=== PATIENT | male | born 1950 | race Two or more races ===

== ENCOUNTER 2019-04-26 22:14 | Inpatient (IN) | payer MEDICARE, OTHER ==
[~2019-04-26] VITALS: Ht 167.6 cm; Wt 70.1 kg
[2019-04-26] MEDS ORDERED: ONDANSETRON 4 MG TAB.RAPDIS ONE (22:26)
[2019-04-26] MEDS ORDERED: ONDANSETRON 4 MG TAB.RAPDIS SL ONE (22:30)
--- NOTE | 2019-04-26 22:35 | NUR ---
PT BIBRA 62 FOR ETOH FROM HOME. "HAD HALF A BOTTLE OF VODKA" . PT AWAKE AND CONFUSED, UNABLE TO OBTAIN HISTORY, VSS. KAITY CUTE DISTRESS NOTED. WILL MONITOR ACCORDINGLY
[2019-04-26 22:38] LABS: BASOPHILS # (AUTO) 0.1 /CMM (0.0-0.2); BASOPHILS % (AUTO) 1.2 % (0.0-2.0); EOSINOPHILS % (AUTO) 3.1 % (0.0-6.0); HEMATOCRIT 43 % (39-51); HEMOGLOBIN 14.3 g/dL (13.5-17.5); LYMPHOCYTES # (AUTO) 2.5 /CMM (0.8-4.8); MEAN CORPUSCULAR HGB CONC 33 g/dl (31.0-36.0); MEAN CORPUSCULAR VOLUME 90 fL (80-96); MONOCYTES # (AUTO) 0.8 /CMM (0.1-1.30); MONOCYTES % (AUTO) 7.7 % (2.0-12.0); NEUTROPHILS # (AUTO) 6.4 /CMM (1.8-8.9); PLATELET COUNT (AUTO) 284 /CMM (150-450); RED BLOOD CELL COUNT(AUTO) 4.85 MIL/uL (4.5-6.0); WHITE BLOOD COUNT (AUTO) 10.1 K/uL (4.3-11.0)
[2019-04-26 22:50] LABS: CALCIUM, SERUM 9.1 mg/dL (8.5-10.1); CREATININE 1.2 mg/dL (0.6-1.3); POTASSIUM 3.6 mmol/L (3.5-5.1)
[2019-04-26 22:58] LABS: ALBUMIN 3.8 g/dL (3.4-5.0); BILIRUBIN,DIRECT 0.1 mg/dL (0.0-0.2); BILIRUBIN,TOTAL 0.2 mg/dL (0.2-1.0); TOTAL PROTEIN, SERUM 8.2 g/dL (6.4-8.2)
--- NOTE | 2019-04-26 23:43 | NUR ---
Patient is resting comfortably in bed. Easily aroused. VSS.
--- NOTE | 2019-04-27 00:05 | NUR ---
PT WATCHING TV AND EATING SANDWHICH. VSS.
[2019-04-27] MEDS ORDERED: HALOPERIDOL LACTATE INJ 5 MG/ML VIAL ONE (00:39)
[2019-04-27] MEDS ORDERED: METOPROLOL TARTRATE 50 MG TABLET ONE (00:46)
[2019-04-27] MEDS ORDERED: METOPROLOL TARTRATE 50 MG TABLET PO ONE (01:00)
[2019-04-27] MEDS ORDERED: ASPIRIN 325 MG TABLET PO ONE (01:00)
[2019-04-27] MEDS ORDERED: HALOPERIDOL LACTATE INJ 5 MG/ML VIAL IM ONE (01:00)
[2019-04-27] MEDS ORDERED: ASPIRIN 325 MG TABLET ONE (01:02)
--- NOTE | 2019-04-27 03:04 | NUR ---
PT RESTING COMFORTABLY. VSS.
[2019-04-27] MEDS ORDERED: IV D5/ 0.9% NACL 1,000 ML IV ONE (03:05)
--- NOTE | 2019-04-27 03:35 | NUR ---
[facility] PAGED
[2019-04-27] MEDS ORDERED: MAG HYDROX/AL HYDROX/SIMETH 30 ML UDC PO PRN (04:00)
[2019-04-27] MEDS ORDERED: ACETAMINOPHEN 325 MG TABLET PO PRN (04:00)
[2019-04-27] MEDS ORDERED: Z GUARD REMEDY 2 OZ OINT TP PRN (04:00)
[2019-04-27] MEDS ORDERED: ZOLPIDEM TARTRATE 5 MG TABLET PO PRN (04:00)
[2019-04-27] MEDS ORDERED: HYDROCODONE/APAP 5/325MG 1 EACH TABLET PO PRN (04:00)
[2019-04-27] MEDS ORDERED: ONDANSETRON HCL/PF 4 MG/2 ML VIAL IVP PRN (04:00)
[2019-04-27] MEDS ORDERED: LORAZEPAM INJ 2 MG/ML VIAL IV PRN (04:00)
--- NOTE | 2019-04-27 04:51 | NUR ---
Spoke with Mark from [facility] for admitting time order and inpatient MD
--- NOTE | 2019-04-27 04:59 | NUR ---
room [id number]
--- NOTE | 2019-04-27 05:05 | NUR ---
report given to matthew boone for mohini
--- NOTE | 2019-04-27 05:43 | NUR ---
ER made aware that pt's BP is 86/62. NNO received. pt is OK to go up.
[2019-04-27 06:00] VITALS: BP 93/59
--- NOTE | 2019-04-27 06:08 | NUR ---
Pt transported to unit on [facility] w/ emt and rn at bedside w/ alcs protocol. nad noted during transfer.
[2019-04-27] MEDS: IV NS 0.9% 1,000 ML IV PRN ×3 (06:22→23:03)
[2019-04-27] MEDS: ENOXAPARIN SODIUM 40 MG/0.4 ML DISP.SYRIN SQ SCH (06:23)
--- NOTE | 2019-04-27 06:33 | NUR ---
ENGINEER PROCESSMOTION PICTURE CRITIC NOTES PATIENT ARRIVED FROM ER ACCOMPANIED BY ER STAFF VIA GURNEY. PATIENT IS A/O X 1-2, SLURRING, CONFUSED, DISORIENTED. PATIENT STABLE ON RA, BREATHING EVEN AND UNLABORED, NO SOB NOTED. NO SIGNS OF ACUTE DISTRESS, NO COMPLAINTS OF PAIN OR DISCOMFORT. IV LOCATED ON RIGHT WRIST # 20 PATENT AND INTACT. TELE MONITORS PLACED ON PATIENT READING A. FIB 81. ALL BELONGINGS ACCOUNTED FOR. PATIENT ORIENTED TO ROOM AND STAFF. VITAL SIGNS TAKEN BP 93/59 P 84 R 18 SPO2 99. WILL CONTINUE TO MONITOR.
--- NOTE | 2019-04-27 06:42 | NUR ---
CASING CREW PUSHER NOTES ENOXAPARIN GIVEN LATE- PATIENT DID NOT ARRIVE TO ROOM UNTIL 0600.
--- NOTE | 2019-04-27 07:45 | NUR ---
[facility] OPENING NOTE RECEIVED PATIENT SLEEPING COMFORTABLY IN BED. PATIENT IN NO ACUTE DISTRESS. NO SOB NOTED. PATIENT BREATHING IS EVEN AND UNLABORED. PATIENT ON CARDIAC MONITORING READING AFIB HR 85. SAFETY PRECAUTIONS IN PLACE. PATIENT BED IS LOCKED AND IN LOWEST POSITION. CALL LIGHT WITHIN REACH. WILL CONTINUE TO MONITOR.
[2019-04-27 08:00] VITALS: BP 105/56
[2019-04-27] MEDS: FOLIC ACID 1 MG TABLET PO SCH (08:34)
[2019-04-27] MEDS: THIAMINE HCL 100 MG TABLET PO SCH (08:34)
[2019-04-27] MEDS ORDERED: IV NS 0.9% 1,000 ML IV PRN (09:19)
[2019-04-27 09:37] LABS: CREATININE 1.2 mg/dL (0.6-1.3); MAGNESIUM 1.6 mg/dL (1.8-2.4); PHOSPHORUS 4.5 mg/dL (2.5-4.9); POTASSIUM 3.8 mmol/L (3.5-5.1)
[2019-04-27 09:45] LABS: CALCIUM, SERUM 8.1 mg/dL (8.5-10.1)
[2019-04-27 10:25] LABS: BASOPHILS # (AUTO) 0.1 /CMM (0.0-0.2); BASOPHILS % (AUTO) 1.2 % (0.0-2.0); EOSINOPHILS % (AUTO) 7.8 % (0.0-6.0); HEMATOCRIT 41 % (39-51); HEMOGLOBIN 13.1 g/dL (13.5-17.5); LYMPHOCYTES # (AUTO) 2.1 /CMM (0.8-4.8); LYMPHOCYTES % (AUTO) 36.4 % (20.0-44.0); MEAN CORPUSCULAR HGB CONC 32 g/dl (31.0-36.0); MEAN CORPUSCULAR VOLUME 91 fL (80-96); MONOCYTES # (AUTO) 0.7 /CMM (0.1-1.30); MONOCYTES % (AUTO) 12.9 % (2.0-12.0); NEUTROPHILS # (AUTO) 2.4 /CMM (1.8-8.9); NEUTROPHILS % (AUTO) 41.7 % (43.0-81.0); PLATELET COUNT (AUTO) 220 /CMM (150-450); RED BLOOD CELL COUNT(AUTO) 4.52 MIL/uL (4.5-6.0); WHITE BLOOD COUNT (AUTO) 5.7 K/uL (4.3-11.0)
[2019-04-27] MEDS: Magnesium 1GM/D5W 100ML PREMIX 100 ML IV SCH ×2 (14:55→16:06)
--- NOTE | 2019-04-27 15:30 | NUR ---
Social service consult requested by Dr. Enrique for homelessness. Upon chart review and MD notes, pt. is a 69 year old male who with past medical history of alcohol abuse, hypertension, asthma, and homelessness, presented today for evaluation of acute alcohol intoxication. He claims to have had half a bottle of vodka earlier in the day, but he doesn't know how big the bottle was. He reportedly was kicked out of his longterm house because they found him to be intoxicated. COOK BOX FILLER met with the pt. bedside. Pt. is alert and oriented x 4. Pt. states he has been homeless nationwide for the past 25 years. Pt. is a poor historian. Pt. stated, he was receiving SSI benefits but stopped receiving them and does not know why. COOK BOX FILLER encouraged pt. to call office and follow up regarding his SSI. Pt. states he is originally from [place] and wants to go back there. Pt. is an alcoholic and drinks a pint of vodka daily. Pt. denies drug use but smokes cigarettes once in a while. Pt. was residing at a longterm house but was evicted due to drinking alcohol. COOK BOX FILLER offered pt. [facility], homeless resources and drug/alcohol treatment resources, however pt. declined. Pt. denies any psychiatric diagnosis and hospitalizations. Pt. denies suicidal/homicidal ideations and visual/auditory hallucinations at this time. COOK BOX FILLER consulted with caser Kristina who informed COOK BOX FILLER, pt. might be discharged to a SNF if deemed appropriate.
[2019-04-27 16:00] VITALS: BP 119/81
--- NOTE | 2019-04-27 18:44 | NUR ---
MS RN CLOSING NOTE PATIENT IN BED RESTING COMFORTABLY. PATIENT IN NO ACUTE DISTRESS. NO SOB NOTED. PATIENT BREATHING IS EVEN AND UNLABORED. PATIENT KEPT CLEAN, DRY, AND COMFORTABLE THROUGHOUT SHIFT. NEEDS AND CONCERNS ADDRESSED. PATIENT SAFETY PRECAUTIONS IN PLACE. PATIENT BED IS LOCKED AND IN LOWEST POSITION. CALL LIGHT WITHIN REACH. WILL ENDORSE CARE TO PM SHIFT FOR SUMIT.
--- NOTE | 2019-04-27 19:09 | NUR ---
MS/RN OPENING NOTES: RECEIVED PATIENT RESTING IN BED COMFORTABLY. NO SOB NOTED, IN NO ACUTE DISTRESS. BREATHING IS EVEN AND UNLABORED. NO COMPLAINS OF PAIN OR DISCOMFORT AT THIS TIME. SAFETY PRECAUTIONS ARE IN PLACE. BED IS LOCKED AND IN LOWEST POSITION WITH SR UP X2. CALL LIGHT WITHIN REACH. WILL CONTINUE TO MONITOR PT ACCORDINGLY.
[2019-04-27 23:14] VITALS: BP 115/89
--- NOTE | 2019-04-28 06:12 | NUR ---
MS/RN CLOSING NOTES: PATIENT IS AWAKE IN BED. SLEPT COMFORTABLY THROUGH THE NIGHT. REMAINS A/OX2-3. NO SOB NOTED, IN NO ACUTE DISTRESS. BREATHING IS EVEN AND UNLABORED. NO COMPLAINS OF PAIN OR DISCOMFORT AT THIS TIME. IV ACCESS ON THE RIGHT WRIST #20G IS INTACT, PATENT AND FLUSHING WELL. NS RUNNING AT 125MLS/HR, SAFETY PRECAUTIONS ARE KEPT IN PLACE. BED IS LOCKED AND IN LOWEST POSITION WITH SR UP X2. CALL LIGHT WITHIN REACH. WILL ENDORSE TO DAY SHIFT NURSE FOR SUMIT.
[2019-04-28 06:52] LABS: BASOPHILS # (AUTO) 0.1 /CMM (0.0-0.2); BASOPHILS % (AUTO) 0.8 % (0.0-2.0); EOSINOPHILS % (AUTO) 8.2 % (0.0-6.0); HEMATOCRIT 38 % (39-51); HEMOGLOBIN 12.2 g/dL (13.5-17.5); LYMPHOCYTES # (AUTO) 1.6 /CMM (0.8-4.8); LYMPHOCYTES % (AUTO) 20.8 % (20.0-44.0); MEAN CORPUSCULAR HGB CONC 32 g/dl (31.0-36.0); MEAN CORPUSCULAR VOLUME 90 fL (80-96); MONOCYTES # (AUTO) 0.8 /CMM (0.1-1.30); NEUTROPHILS # (AUTO) 4.5 /CMM (1.8-8.9); NEUTROPHILS % (AUTO) 59.2 % (43.0-81.0); PLATELET COUNT (AUTO) 200 /CMM (150-450); RED BLOOD CELL COUNT(AUTO) 4.19 MIL/uL (4.5-6.0); WHITE BLOOD COUNT (AUTO) 7.7 K/uL (4.3-11.0)
[2019-04-28 06:55] LABS: ALANINE AMINOTRANSFERASE 19 U/L (12-78); ALBUMIN 2.9 g/dL (3.4-5.0); ALKALINE PHOSPHATASE 76 U/L (46-116); ASPARTATE AMINOTRANSFERASE 23 U/L (15-37); BILIRUBIN,TOTAL 0.4 mg/dL (0.2-1.0); CALCIUM, SERUM 8.4 mg/dL (8.5-10.1); CARBON DIOXIDE 23 mmol/L (21-32); CHLORIDE 108 mmol/L (98-107); CREATININE 0.9 mg/dL (0.6-1.3); GLUCOSE 87 mg/dL (74-106); MAGNESIUM 1.7 mg/dL (1.8-2.4); PHOSPHORUS 3.3 mg/dL (2.5-4.9); SODIUM SERUM 140 mmol/L (136-145); TOTAL PROTEIN, SERUM 6.4 g/dL (6.4-8.2); UREA NITROGEN, BLOOD 16 mg/dL (7-18)
[2019-04-28 08:00] VITALS: BP 134/69
[2019-04-28] MEDS: Magnesium 1GM/D5W 100ML PREMIX 100 ML IV SCH ×2 (08:52→10:15)
[2019-04-28] MEDS: ENOXAPARIN SODIUM 40 MG/0.4 ML DISP.SYRIN SQ SCH (10:09)
[2019-04-28] MEDS: FOLIC ACID 1 MG TABLET PO SCH (10:09)
[2019-04-28] MEDS: THIAMINE HCL 100 MG TABLET PO SCH (10:09)
[2019-04-28 16:00] VITALS: BP 138/70
--- NOTE | 2019-04-28 18:00 | NUR ---
pt. quiet,no complaints offered.mg replaced intravenously.
--- NOTE | 2019-04-28 19:30 | NUR ---
MS RN NOTES PATIENT IN BED, AWAKE, ALERT AND ORIENTED X 4. BREATHING EVEN AND UNLABORED ON ROOM AIR. DENIES ACUTE PAIN, NO ACUTE RESPIRATORY DISTRESS. IV ON RIGHT WRIST 20G IS CLEAN DRY AND INTACT. SHOWS NO SIGNS OF INFILTRATION, NO REDNESS. SAFETY PRECAUTIONS IN PLACE. BED IN LOWEST POSITION, LOCKED, AND CALL LIGHT KEPT WITHIN REACH. WILL CONTINUE TO MONITOR.
[2019-04-28 20:00] VITALS: BP 137/96
--- NOTE | 2019-04-29 06:44 | NUR ---
MS RN NOTES PATIENT IN BED, ASLEEP, ALERT AND ORIENTED X 4. BREATHING EVEN AND UNLABORED ON ROOM AIR. DENIES ACUTE PAIN, NO ACUTE RESPIRATORY DISTRESS. IV ON RIGHT WRIST 20G IS CLEAN DRY AND INTACT. SHOWS NO SIGNS OF INFILTRATION, NO REDNESS. ALL DUE MEDICATIONS GIVEN. SAFETY PRECAUTIONS IN PLACE. BED IN LOWEST POSITION, LOCKED, AND CALL LIGHT KEPT WITHIN REACH. WILL ENDORSE TO ONCOMING NURSE.
[2019-04-29 08:45] VITALS: BP 130/85
[2019-04-29] MEDS: SERTRALINE HCL 25 MG TABLET PO SCH (09:27)
[2019-04-29] MEDS: FOLIC ACID 1 MG TABLET PO SCH (09:27)
[2019-04-29] MEDS: THIAMINE HCL 100 MG TABLET PO SCH (09:27)
[2019-04-29] MEDS: ENOXAPARIN SODIUM 40 MG/0.4 ML DISP.SYRIN SQ SCH (09:32)
[2019-04-29 12:40] LABS: CREATININE 0.9 mg/dL (0.6-1.3); MAGNESIUM 1.5 mg/dL (1.8-2.4); POTASSIUM 4.1 mmol/L (3.5-5.1)
[2019-04-29] MEDS: Magnesium 1GM/D5W 100ML PREMIX 100 ML IV SCH ×4 (13:00→17:58)
[2019-04-29 15:57] VITALS: BP 120/83
--- NOTE | 2019-04-29 16:52 | NUR ---
ms/rn 1300 and 1400 magnesium was not administered as magnesium bags were not stocked on the floor. pharmacy called for restocking.
--- NOTE | 2019-04-29 19:30 | NUR ---
MS RN OPENING NOTES PATIENT AWAKE AND RESTING IN BED. A/O X 2-3. ON ROOM AIR. NO COMPLAINTS OF SOB OR PAIN. IV PRESENT ON RIGHT WRIST, SIZE 20, INTACT & PATENT, HEP LOCKED. PATIENT ABLE TO VERBALIZE NEEDS. BED LOCKED, ALARM ON, SEMI-ALMAZAN'S POSITION, SIDE RAILS X2, CALL LIGHT WITHIN REACH. WILL CONTINUE TO MONITOR.
[2019-04-29 20:00] VITALS: BP 127/88
--- NOTE | 2019-04-30 06:39 | NUR ---
MS RN CLOSING NOTES PATIENT SLEEPING IN BED, EASY TO AWAKEN. A/O X2-3. ON ROOM AIR. NO COMPLAINTS OF SOB OR PAIN AT THIS TIME. IV PRESENT ON RIGHT WRIST, SIZE 20, INTACT & PATENT, HEP LOCKED. BED LOCKED, ALARM ON, LOW-ALMAZAN'S POSITION, SIDE RAILS X2, CALL LIGHT WITHIN REACH. WILL ENDORSE TO DAY SHIFT NURSE TO FOLLOW PLAN OF CARE.
[2019-04-30 07:05] LABS: BASOPHILS # (AUTO) 0.1 /CMM (0.0-0.2); BASOPHILS % (AUTO) 0.8 % (0.0-2.0); EOSINOPHILS % (AUTO) 7.4 % (0.0-6.0); HEMATOCRIT 40 % (39-51); HEMOGLOBIN 13.1 g/dL (13.5-17.5); LYMPHOCYTES # (AUTO) 1.7 /CMM (0.8-4.8); LYMPHOCYTES % (AUTO) 20.8 % (20.0-44.0); MEAN CORPUSCULAR HGB CONC 33 g/dl (31.0-36.0); MEAN CORPUSCULAR VOLUME 90 fL (80-96); MONOCYTES # (AUTO) 1.1 /CMM (0.1-1.30); MONOCYTES % (AUTO) 13.3 % (2.0-12.0); NEUTROPHILS # (AUTO) 4.7 /CMM (1.8-8.9); NEUTROPHILS % (AUTO) 57.7 % (43.0-81.0); PLATELET COUNT (AUTO) 196 /CMM (150-450); WHITE BLOOD COUNT (AUTO) 8.1 K/uL (4.3-11.0)
[2019-04-30 07:09] LABS: CALCIUM, SERUM 8.7 mg/dL (8.5-10.1); MAGNESIUM 1.6 mg/dL (1.8-2.4); PHOSPHORUS 3.7 mg/dL (2.5-4.9); POTASSIUM 3.5 mmol/L (3.5-5.1)
--- NOTE | 2019-04-30 07:48 | NUR ---
MS RN OPENING NOTES RECEIVED PATIENT IN BED, ASLEEP. PATIENT BREATHING ON ROOM AIR. BREATHING IS EVEN AND SYMMETRICAL. NO ACUTE SIGNS OF DISTRESS NOTED. NO SOB AT THIS TIME. RIGHT WRIST GAUGE # 20 PRESENT AND INTACT. SAFETY PRECAUTIONS IN PLACE; BED IN LOW POSITION AND LOCKED, RAILS UP X 2, CALL LIGHT WITHIN REACH. WILL CONTINUE TO MONITOR PATIENT.
[2019-04-30] MEDS: THIAMINE HCL 100 MG TABLET PO SCH (08:59)
[2019-04-30] MEDS: SERTRALINE HCL 25 MG TABLET PO SCH (08:59)
[2019-04-30] MEDS: FOLIC ACID 1 MG TABLET PO SCH (08:59)
[2019-04-30] MEDS: ENOXAPARIN SODIUM 40 MG/0.4 ML DISP.SYRIN SQ SCH (09:00)
[2019-04-30 10:00] VITALS: BP 120/81
[2019-04-30] MEDS ORDERED: Thiamine HCL PO (10:21)
[2019-04-30] MEDS ORDERED: SERT25TA5 PO (10:21)
[2019-04-30] MEDS ORDERED: Folic Acid PO (10:21)
[2019-04-30] MEDS: Magnesium 1GM/D5W 100ML PREMIX 100 ML IV SCH ×2 (10:37→12:28)
--- NOTE | 2019-04-30 13:06 | NUR ---
MS RN NOTES PATIENT MAGNESIUM LEVELS THIS MORNING CAME BACK AT 1.6. 2 BAGS OF MAGNESIUM INFUSED.
[2019-04-30 16:26] VITALS: BP 126/79
--- NOTE | 2019-04-30 18:57 | NUR ---
MS RN CLOSING NOTES PATIENT IN BED, AWAKE, WATCHING TV. PATIENT BREATHING ON ROOM AIR. BREATHING IS EVEN AND SYMMETRICAL. NO ACUTE SIGNS OF DISTRESS NOTED. NO SOB AT THIS TIME. RIGHT WRIST GAUGE # 20 PRESENT AND INTACT. PATIENT HAD A D/C ORDER BUT WAS RE-SCHEDULED FOR TOMORROW DUE TO NO BED AVAILABILITY. PATIENT IS AWARE. SAFETY PRECAUTIONS IN PLACE; BED IN LOW POSITION AND LOCKED, RAILS UP X 2, CALL LIGHT WITHIN REACH. WILL ENDORSE TO HUNTING SALES LEADER NURSE.
--- NOTE | 2019-04-30 19:10 | NUR ---
MS/RN NOTES RECEIVED PT. LYING IN BED. PT. IS AWAKE, ALERT AND ORIENTED X3. BREATHING EVEN AND UNLABORED ON ROOM AIR. NO SOB, RESPIRATORY DISTRESS OR COMPLAINTS OF PAIN NOTED AT THIS TIME. PT. WITH RIGHT WRIST 20 GAUGE IV SALINE LOCK PRESENT, PATENT AND INTACT. BED LOCKED AND IN LOWEST POSITION, SIDE RAILS UP X2, CALL LIGHT WITHIN REACH, WILL CONTINUE TO MONITOR.
[2019-04-30 20:31] VITALS: BP 132/86
--- NOTE | 2019-05-01 06:44 | NUR ---
MS/RN NOTES PT. IS LYING IN BED RESTING. BREATHING EVEN AND UNLABORED ON ROOM AIR. NO SOB, RESPIRATORY DISTRESS OR COMPLAINTS OF PAIN NOTED AT THIS TIME. PT. WITH RIGHT WRIST 20 GAUGE IV SALINE LOCK PRESENT, PATENT AND INTACT. ALL PT. NEEDS MET. BED LOCKED AND IN LOWEST POSITION, SIDE RAILS UP X2, CALL LIGHT WITHIN REACH, WILL ENDORSE TO DAYSHIFT NURSE FOR CONTINUITY OF CARE.
[2019-05-01 08:00] VITALS: BP 136/89
--- NOTE | 2019-05-01 08:00 | NUR ---
MS/RN NOTES PT. IS LYING IN BED RESTING. BREATHING EVEN AND UNLABORED ON ROOM AIR. NO SOB, RESPIRATORY DISTRESS OR COMPLAINTS OF PAIN NOTED AT THIS TIME. PT. WITH RIGHT WRIST 20 GAUGE IV SALINE LOCK PRESENT, PATENT AND INTACT. SO EAGER TO BE DISCHARGED.PLEASANT AND COOPERATIVE WITH STAFF.BED LOCKED AND IN LOWEST POSITION, SIDE RAILS UP X2, CALL LIGHT WITHIN REACH,
[2019-05-01] MEDS: FOLIC ACID 1 MG TABLET PO SCH (09:08)
[2019-05-01] MEDS: SERTRALINE HCL 25 MG TABLET PO SCH (09:08)
[2019-05-01] MEDS: THIAMINE HCL 100 MG TABLET PO SCH (09:08)
[2019-05-01] MEDS: ENOXAPARIN SODIUM 40 MG/0.4 ML DISP.SYRIN SQ SCH (09:08)
[2019-05-01 10:19] LABS: CALCIUM, SERUM 9.1 mg/dL (8.5-10.1); MAGNESIUM 1.7 mg/dL (1.8-2.4); POTASSIUM 4.9 mmol/L (3.5-5.1)
--- NOTE | 2019-05-01 13:30 | NUR ---
DISCHARGED PT TO [facility] VIA AMBULANCE WITH STABLE V/S.PT IS ALL DRESSED UP AND REFUSED TO HAVE PHOTOS TO BE TAKE INSPITE OF EXPLAINING THE HOSPITAL PROTOCOL.IV H/L REMOVED TO RT WRIST WITH NO BLEEDING NOTED. PT TOLERATED WELL WITH NO S/S OF PAIN OR DISTRESS.
== END 2019-05-01 13:30 | DRG 897 ==
LOC: ER 22:15 → TELE 04-27 05:00 → MED 04-27 10:31
PROVIDERS: ADMIT Registered Nurse; ATTEND Registered Nurse
DX: F10.129 Alcohol abuse with intoxication, unspecified (principal); I48.91 Unspecified atrial fibrillation; Y90.8 Blood alcohol level of 240 mg/100 ml or more; I10 Essential (primary) hypertension; J45.909 Unspecified asthma, uncomplicated; Z59.0 Homelessness; E83.42 Hypomagnesemia; Z81.8 Family history of other mental and behavioral disorders; Z91.81 History of falling; F32.9 Major depressive disorder, single episode, unspecified; F10.229 Alcohol dependence with intoxication, unspecified; F19.24 Other psychoactive substance dependence with psychoactive substance-induced mood disorder
CPT/HCPCS: 36415; 80048-TC; 80053-TC; 80061-TC; 80076-TC; 83735-TC; 84100-TC; 84484-TC; 85025-TC; 87081-TC; 93307-TC; G0378; G0480; J1630; J1650; J3475; J7030; J7042; J7050; Q0162